=== PATIENT | female | born 1970 | race Caucasian/White ===

== ENCOUNTER 2017-04-14 11:09 | Emergency (ER) | payer OTHER ==
[~2017-04-14] VITALS: Ht 167.6 cm; Wt 78.9 kg
[~2017-04-14 11:09] MED LIST: FERRO-TIME325 MG PO; FOLIC ACID PO; UNICOMPLEX NEW1 CAP PO; [UNRECOGNIZED DRUG - OTHER] PO
[2017-04-14 12:43] VITALS: Ht 167.6 cm; Wt 78.9 kg
[2017-04-14 17:38] VITALS: BP 96/66
== END 2017-04-14 17:38 | disposition home or self-care (01) ==
LOC: ED 11:09
DX: J20.9 Acute bronchitis, unspecified (principal)

== ENCOUNTER 2019-12-20 21:05 | Emergency (ER) | payer MEDICAID ==
[~2019-12-20] VITALS: Ht 160 cm; Wt 82.6 kg
[2019-12-20 21:11] VITALS: BP 121/62; Ht 160 cm; Wt 82.6 kg
== END 2019-12-20 21:25 | disposition home or self-care (01) ==
LOC: ED 21:05
DX: H60.92 Unspecified otitis externa, left ear (principal)

== ENCOUNTER 2020-04-05 09:46 | Emergency (ER) | payer MEDICAID ==
[~2020-04-05] VITALS: Ht 165.1 cm; Wt 81.6 kg
[2020-04-05 09:51] VITALS: Ht 165.1 cm; Wt 81.6 kg
[2020-04-05 10:49] LABS: BASOPHIL % 0.9 % (0.2-1.3); PLATELET COUNT 275 x10^3mcL (179-408)
[2020-04-05 11:25] LABS: RED CELL DISTRIBUTION WIDTH 20.7 % (12.3-17.7)
[2020-04-05 12:16] VITALS: BP 113/66
[2020-04-05 13:22] LABS: CALCIUM 9.2 mg/dL (8.5-10.1); CARBON DIOXIDE 27.3 mmol/L (21-32); CHLORIDE SERUM 106 mmol/L (98-107); GFR1 > 60 mL/min; GLUCOSE SERUM 131 mg/dL (74-106); POTASSIUM SERUM 4.5 mmol/L (3.5-5.1); SODIUM SERUM 145 mmol/L (136-145)
[2020-04-05 13:26] LABS: ALBUMIN 3.8 g/dL (3.4-5.0); ALKALINE PHOSPHATASE 102 U/L (46-116); ALT/SGPT 52 U/L (14-59); AST/SGOT 43 U/L (15-37); BILIRUBIN TOTAL 0.4 mg/dL (0.20-1.00); TOTAL PROTEIN, SERUM 8.2 g/dL (6.4-8.2)
[2020-04-05 15:41] LABS: rbc morphology (normal/abnorm) NORMAL (NORMAL)
== END 2020-04-05 12:16 | disposition home or self-care (01) ==
LOC: ED 09:46
PROVIDERS: Student in an Organized Health Care Education/Training Program
DX: R51.9 Headache, unspecified (principal); Z20.828 Contact with and (suspected) exposure to other viral communicable diseases
CPT/HCPCS: J1200; J1885; J2765; U0003

== ENCOUNTER → 2020-04-27 | Outpatient (CLI) | payer MEDICAID | END | disposition home or self-care (01) | LOC: US 08:55 | PROC: BF42ZZZ Ultrasonography of Gallbladder (ICD-10-PCS; principal; 2020-04-27) | DX: K85.10 Biliary acute pancreatitis without necrosis or infection (principal); R11.0 Nausea ==

== ENCOUNTER → 2020-05-05 | Outpatient (CLI) | payer MEDICAID ==
[2020-05-05 11:34] LABS: BASOPHIL % 0.9 % (0.2-1.3); PLATELET COUNT 251 x10^3mcL (179-408)
[2020-05-05 11:36] LABS: RED CELL DISTRIBUTION WIDTH 19.5 % (12.3-17.7)
[2020-05-05 11:45] LABS: ALKALINE PHOSPHATASE 91 U/L (46-116); ALT/SGPT 42 U/L (14-59); AMYLASE 85 U/L (25-115); AST/SGOT 28 U/L (15-37); BILIRUBIN TOTAL 0.47 mg/dL (0.20-1.00); CALCIUM 9.3 mg/dL (8.5-10.1); CARBON DIOXIDE 30.2 mmol/L (21-32); CHLORIDE SERUM 104 mmol/L (98-107); CREATININE SERUM 0.9 mg/dL (0.6-1.0); GFR1 > 60 mL/min; GLUCOSE SERUM 108 mg/dL (74-106); HDL CHOLESTEROL 59 mg/dL (40-60); LIPASE 181 IU/L (73-393); POTASSIUM SERUM 4.5 mmol/L (3.5-5.1); SODIUM SERUM 141 mmol/L (136-145); TRIGLYCERIDES 117 mg/dL (<150)
[2020-05-05 11:52] LABS: FREE T4 1.02 ng/dL (0.76-1.46); FREE THYROXINE INDEX 2.5 ug/dL (1.4-4.5); T4(THYROXINE) 9.1 ug/dL (4.7-13.3)
[2020-05-05 11:55] LABS: CHOLESTEROL 214 mg/dL (<200); CHOLESTEROL/HDL RATIO 3.6; TOTAL PROTEIN, SERUM 8.5 g/dL (6.4-8.2); UA SPECIFIC GRAVITY 1.025 (1.005-1.035); microscopic required? YES; urine erythrocyte TRACE (NEGATIVE)
[2020-05-05 12:46] LABS: IRON 111 ug/dL (50-170)
[2020-05-05 12:52] LABS: TOTAL IRON BINDING CAPACITY 453 ug/dL (250-450)
[2020-05-06 08:56] LABS: T3 TOTAL 1.12 ng/mL
== END | disposition home or self-care (01) ==
LOC: LB 10:35
DX: K80.20 Calculus of gallbladder without cholecystitis without obstruction (principal)
CPT/HCPCS: 84439